=== PATIENT | female | born 1970 | race Caucasian/White ===

== ENCOUNTER 2025-06-28 11:10 | Outpatient (CLI) | payer OTHER, SELFPAY | END 2025-06-28 11:11 | disposition home or self-care (01) | PROVIDERS: PCP Family Medicine; Visit Provider Family Medicine | DX: Z00.00 Encounter for general adult medical examination without abnormal findings (principal); Z11.59 Encounter for screening for other viral diseases | CPT/HCPCS: 80053; 80061; 86803 ==